=== PATIENT | female | born 1970 | race Caucasian/White ===

== ENCOUNTER → 2016-11-21 | Outpatient (CLI) | payer OTHER | LOC: FIMAGING 12:06 | PROVIDERS: ATTEND Obstetrics & Gynecology | DX: Z12.31 Encounter for screening mammogram for malignant neoplasm of breast (principal) | CPT/HCPCS: G0202 ==

== ENCOUNTER → 2017-09-12 | Outpatient (CLI) | payer OTHER | LOC: BMCIMAGING 15:34 | PROVIDERS: ATTEND Orthopaedic Surgery | DX: M79.642 Pain in left hand (principal) ==

== ENCOUNTER 2017-09-13 14:29 | Day surgery (SDC) | payer OTHER ==
[2017-09-13] MEDS ORDERED: LR 1,000 ML IV SCH (14:30)
[2017-09-13] MEDS ORDERED: ACETAMINOPHEN 500 MG TAB PO ONE (14:30)
[2017-09-13] MEDS ORDERED: LR 1,000 ML IV ONE (14:32)
--- NOTE | 2017-09-13 15:01 | PDANEPAE ---
ANE Review of Systems Review of Systems: ANE Patient History - Allergies Allergies/Adverse Reactions: No Known Allergies Allergy (Unverified 09/22/09 15:52) - Home Medications Home Medications: NO HOME MEDS 09/22/09 [Last Taken Unknown] ANE Physical Exam - Airway Neck exam: FROM Mallampati Score: Class 1 Mouth exam: normal dental/mouth exam - Pulmonary Pulmonary: no respiratory distress - Cardiovascular Cardiovascular: regular rate and rhythym - ASA Status ASA Status: II ANE Anesthesia Plan Anesthesia Plan: GA w LMA
[2017-09-13] MEDS ORDERED: BACITRACIN 50,000 UNITS/10 ML SYR IRR ONE (15:03)
[2017-09-13] MEDS ORDERED: BUPIVACAINE 0.5% 30 ML SDV ONE (15:03)
[2017-09-13] MEDS ORDERED: MIDAZOLAM 2 MG/2 ML VIAL ONE (15:31)
[2017-09-13] MEDS ORDERED: fentaNYL 100 MCG/2 ML INJ ONE ×2 (15:31)
[2017-09-13] MEDS ORDERED: PROPOFOL 200 MG/20 ML VIAL ONE (15:31)
[2017-09-13] MEDS ORDERED: DEXAMETHASONE 4 MG/ML VIAL ONE (15:32)
[2017-09-13] MEDS ORDERED: LIDOCAINE 2% 100 MG/5 ML SYR ONE (15:32)
[2017-09-13] MEDS ORDERED: METOCLOPRAMIDE 10 MG/2 ML VIAL ONE (15:32)
--- NOTE | 2017-09-13 15:41 | PDHPUP ---
History & Physical Update H&P update statement: This history and physical update is based on an assessment of the patient which was completed after admission or registration (within 24 hours), but prior to the surgery/procedure. H&P update: no change in patient's condition since H&P completed
[2017-09-13] MEDS ORDERED: AMPICILLIN/SULBACTAM 3 GM in NS 100 ML IV ONE (16:16)
[2017-09-13] MEDS ORDERED: HYDROCODONE/APAP 5/325 TAB PO PRN ×2 (16:17→16:24)
[2017-09-13] MEDS ORDERED: ONDANSETRON 4 MG/2 ML VIAL IVP PRN (16:24)
[2017-09-13] MEDS ORDERED: MEPERIDINE 25 MG/0.5 ML AMP IVP PRN (16:24)
[2017-09-13] MEDS ORDERED: fentaNYL 100 MCG/2 ML INJ IVP PRN (16:24)
[2017-09-13] MEDS ORDERED: ALBUTEROL 3 ML DEYVIAL IH PRN (16:24)
[2017-09-13] MEDS ORDERED: ACETAMINOPHEN 500 MG TAB PO PRN (16:24)
[2017-09-13] MEDS ORDERED: oxyCODONE IR 5 MG TAB PO PRN (16:24)
[2017-09-13] MEDS ORDERED: NALOXONE HCL 0.4 MG/ML INJ IVP PRN (16:24)
--- NOTE | 2017-09-13 16:26 | POSTANESTH ---
Post Anesthetic Evaluation Cardiovascular Status: Similar to Pre-Op Cond Respiratory Status: Similar to Pre-op Cond. Level of Consciousness/Mental Status: Alert and Oriented Pain Control: Adequate, Prn Tx Ordered Nausea/Vomiting Control: Adequate, Prn Tx Ordered Complications Possibly Related to Anesthesia: None Noted
[2017-09-13 17:53] VITALS: BP 113/72
--- NOTE | 2017-09-14 09:10 | GOP ---
[f rep st] OPERATIVE REPORT DATE OF OPERATION: 09/13/2017 SURGEON: Kenny Miramontes MD ABATTOIR MANAGER: None. PREOPERATIVE DIAGNOSIS: Infected left long metacarpophalangeal joint status post dog bite. POSTOPERATIVE DIAGNOSIS: Infected left long metacarpophalangeal joint status post dog bite. PROCEDURE PERFORMED: Irrigation debridement left hand abscess/thumb metacarpophalangeal joint sepsis . 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 She has developed increasing redness, swelling and purulent drainage from her hand. I had recomme nded irrigation debridement given the concern for possible septic arthropathy. She wished to be more conservative initially and has been given IM Rocephin 2 days in a row with improvement of her sympto ms. However, this has localized to the long finger metacarpophalangeal joint. I have strongly recom mended at this point that she requires operative intervention with irrigation debridement of the meta carpophalangeal joint. This is to preserve the cartilaginous surface and avoid long-term dysfunction . She understood this and wished to proceed. Written consent was signed and placed in patient's [facility] rt. DESCRIPTION OF PROCEDURE: The patient was identified in the preanesthesia area. The left ankle was clearly demarcated as the operative site with indelible marker. She was given no preoperative antibi otics. In the OR, general endotracheal anesthesia was administered. She was positioned in the supin e position. A tourniquet was applied to the upper arm. Appropriate time-out procedure was carried o wv. The limb was then sterilely prepped and draped in usual fashion. The limb was exsanguinated dur ing the prepping process with elevation only and the tourniquet inflated to 250 mmHg. The previous i ncision was opened both proximally and distally and the dog bite tract excised. This was carried sha rply through the skin to the subcutaneous tissue. Subcutaneous cultures were sent. There was a rent into the metacarpophalangeal joint which was opened. There was purulence under pressure. This was also swabbed and sent for tissue culture and analysis. The soft tissues and joint were then debrided and copiously irrigated with pulsatile lavage with bacitracin. The wound was then closed at the pro ximal distal aspect of the wound leaving the previous traumatic wound open. A gauze wick was placed followed by sterile dressing, 4 inch Webril, 4 inch Rl wrap. She was instructed on ice and elevatio n. She will be given 3.1 g of Unasyn in the PACU, continue on her oral Augmentin and follow up in 24 hours for repeat evaluation. /[id number]/MODL
== END 2017-09-13 17:50 | disposition home or self-care (01) ==
LOC: FSGY 14:29
PROVIDERS: ATTEND Orthopaedic Surgery
PROC: 0R9 Upper Joints, Drainage (ICD-10-PCS; principal; 2017-09-13 15:30)
DX: L03.114 Cellulitis of left upper limb (principal); B96.89 Other specified bacterial agents as the cause of diseases classified elsewhere; M79.642 Pain in left hand; W54.0XXA Bitten by dog, initial encounter
CPT/HCPCS: J0295; J1100; J2001; J2250; J2704; J2765; J3010

== ENCOUNTER → 2018-03-29 | Outpatient (CLI) | payer OTHER | LOC: FIMAGING 15:54 | PROVIDERS: ATTEND Obstetrics & Gynecology | DX: Z12.31 Encounter for screening mammogram for malignant neoplasm of breast (principal) ==